=== PATIENT | female | born 1935 | race Caucasian/White ===

== ENCOUNTER 2017-08-22 07:59 | Emergency (ER) | payer OTHER ==
[~2017-08-22] VITALS: Ht 165.1 cm; Wt 99.1 kg
[~2017-08-22 07:59] MED LIST: ALDOMET500 MG PO; CATAPRES0.1 MG PO; CELEBREX200 MG PO; COUMADIN,JANTOVE1 MG PO; CYANOCOBALAM1000 MCG PO; ENDOCET 5-3251 EACH PO; Ecotrin PO; Feosol PO; Glucophage PO; Glucosamine Sulfate PO; HYDRALAZINE HCL50 MG PO; HYDROCHLOROTHIA25 MG PO; Hydrodiuril,Oretic,E PO; MINOXIDIL2.5 MG PO; POTASSIUM CHLO10 ME3 PO; POTASSIUM GLUCO2 MEQ PO; Potassium Gluconate PO; SENOKOT S,PE1 TABLET PO; TOPROL XL100 MG PO; VITAMIN D PO
[2017-08-22 08:44] LABS: HEMATOCRIT 40.1 % (36.0-46.0); HEMOGLOBIN 13.8 G/DL (11.9-15.5); MCH 30.1 PG (29.0-34.0); MCHC 34.4 G/DL (30.0-36.0); MCV 87.4 FL (83-99); PLATELET COUNT 309 K/uL (156-360); RBC DIS.WIDTH-CV 13.5 % (11.8-14.6); RBC DIS.WIDTH-SD 42.7 % (39-53); RED BLOOD COUNT 4.59 M/uL (3.80-5.20); WHITE BLOOD COUNT 7.7 K/uL (4.1-10.2)
[2017-08-22 09:00] LABS: CHLORIDE 101 mEq/L (99-109); POTASSIUM 4.1 mEq/L (3.7-5.4); SODIUM 137 mEq/L (136-147)
[2017-08-22 09:01] LABS: GLUCOSE 179 mg/dL (70-99)
[2017-08-22 09:05] LABS: CREATININE 0.9 mg/dL (0.6-1.3); GFR ESTIMATE (CALCULATED) > 59 mL/min/
[2017-08-22 09:06] LABS: UREA NITROGEN (BUN) 14 mg/dL (9-23)
[2017-08-22 09:14] LABS: TROP-I INTERPRETATION NEGATIVE; TROPONIN-I 0.02 ng/mL (0.0-0.30)
[2017-08-22 10:45] VITALS: BP 114/63
== END 2017-08-22 11:31 | disposition home or self-care (01) ==
LOC: EME 07:59
PROVIDERS: Nurse Practitioner Family
DX: I10 Essential (primary) hypertension (principal); F41.9 Anxiety disorder, unspecified; E11.9 Type 2 diabetes mellitus without complications; Z96.653 Presence of artificial knee joint, bilateral; Z96.611 Presence of right artificial shoulder joint; Z96.643 Presence of artificial hip joint, bilateral; Z88.6 Allergy status to analgesic agent
CPT/HCPCS: 71046; 80048; 84484; 85027; 93005; 99281; 99284